=== PATIENT | male | born 2000 | race Caucasian/White ===

== ENCOUNTER 2022-07-30 11:18 | Outpatient (CLI) | payer BC, SELFPAY ==
[2022-07-30 11:31] VITALS: BMI 28.5
[2022-07-30 11:58] LABS: Microscopic, Urine URINE MICROSCOPIC (MICROSCOPIC)
[2022-07-30 11:58] LABS: Coronavirus 19, PCR Not Detected (NotDetected); Influenza A, PCR Not Detected (NotDetected); Influenza B, PCR Not Detected (NotDetected)
[2022-07-30 11:59] LABS: Appearance,Urine CLEAR (Clear); Bilirubin,Urine Negative (Negative); Blood, Urine Negative (Negative); Color,Urine YELLOW (Yellow); Glucose,Urine (UA) Negative (Negative); Ketones,Urine Negative (Negative); Leukocyte Esterase,Urine Negative (Negative); Nitrate,Urine Negative (Negative); PH,Urine 6.5 (5.0-8.5); Protein,Urine Negative (Negative); Specific Gravity, Urine <= 1.005 (1.005-1.030); Urobilinogen,Urine 0.2 EU/dl (0.2)
[2022-07-30 12:00] LABS: Basophils # 0.1 K/mm3 (0-0.2); Basophils % 1.2 % (0.1-2.0); Eosinophils # 0.6 K/mm3 (0.0-0.4); Eosinophils % 8.5 % (0.1-12.0); Hematocrit 45.6 % (42.0-52.0); Hemoglobin 14.6 g/dL (14.1-18.0); Lymphocytes # 1.5 K/mm3 (0.7-4.5); Lymphocytes % 23.9 % (10-50); Mean Corpuscular HGB Conc 32.1 g/dL (31.8-35.4); Mean Corpuscular Hemoglobin 29.5 pg (27.0-31.2); Mean Corpuscular Volume 91.9 fl (80-94); Mean Platelet Volume 8.6 fl (7.4-10.4); Monocytes # 0.6 K/mm3 (0.1-1.0); Monocytes % 9.1 % (1.7-9.3); Neutrophils # 3.7 K/mm3 (1.8-7.8); Neutrophils % 57.3 % (37.0-80.0); Platelet Count 261 K/mm3 (142-424); Red Blood Count 4.96 M/mm3 (4.60-6.20); Red Cell Distribution Width 13.3 % (11.5-17.5); White Blood Count 6.4 K/mm3 (4.8-10.8)
[2022-07-30 12:02] VITALS: BP 134/72; PULSE 84; RESP 18; O2SAT 99
[2022-07-30 12:02] LABS: Chloride 104 mmol/L (98-107); Sodium 141 mmol/L (136-145)
[2022-07-30 12:03] LABS: Potassium 3.5 mmoL/L (3.5-5.1)
[2022-07-30 12:05] LABS: Alanine Aminotransferase 64 U/L (12-78); Albumin Level 4.4 g/dl (3.5-5.0); Albumin/Globulin Ratio 1.7 (1.1-1.8); Alkaline Phosphatase 60 U/L (38-126); Anion Gap 12.5 mEq/L (5-15); Aspartate Amino Transferase 41 U/L (17-59); Bilirubin,Total 0.2 mg/dl (0.2-1.3); Blood Urea Nitrogen 12 mg/dl (9-20); Calcium 9.2 mg/dl (8.4-10.2); Carbon Dioxide 28 mmol/L (22.0-30.0); Creatinine Clearance Estimated 155 mL/min (50-200); Estimated Glomerular Filt Rate 106 ml/min (>60); GFR (African American) 128 ML/MIN (>60); Globulin 2.6 g/dL (1.3-3.2); Glucose 102 mg/dl (74-100)
[2022-07-30 13:05] VITALS: BP 128/76; PULSE 86; RESP 18; O2SAT 100
--- NOTE | 2022-07-30 13:05 | PC.NURSE ---
1305-notified rafat ponce with lab results;she states pt ok to not get other liter of fluid;pt ok to be d/c home
== END 2022-07-30 13:05 | disposition home or self-care (01) ==
LOC: INF 11:23
PROVIDERS: PCP Physician Assistant; Visit Provider Physician Assistant
DX: Z20.822 Contact with and (suspected) exposure to COVID-19 (principal); R19.7 Diarrhea, unspecified; E86.0 Dehydration
CPT/HCPCS: 80053; 81001; 85025; 96360; C9803; U0003; U0005

== ENCOUNTER → 2023-05-18 13:17 | Outpatient (CLI) | payer BC, SELFPAY ==
[2023-05-18 12:49] LABS: Basophils % 0.6 % (0.1-2.0); Eosinophils # 0.3 K/mm3 (0.0-0.4); Eosinophils % 3.4 % (0.1-12.0); Hematocrit 48.4 % (42.0-52.0); Hemoglobin 15.6 g/dL (14.1-18.0); Lymphocytes # 2.1 K/mm3 (0.7-4.5); Lymphocytes % 27.3 % (10-50); Mean Corpuscular HGB Conc 32.2 g/dL (31.8-35.4); Mean Corpuscular Hemoglobin 29.2 pg (27.0-31.2); Mean Corpuscular Volume 90.4 fl (80-94); Mean Platelet Volume 9.4 fl (7.4-10.4); Monocytes # 0.6 K/mm3 (0.1-1.0); Neutrophils # 4.6 K/mm3 (1.8-7.8); Neutrophils % 60.7 % (37.0-80.0); Platelet Count 245 K/mm3 (142-424); Red Blood Count 5.35 M/mm3 (4.60-6.20); Red Cell Distribution Width 12.9 % (11.5-17.5); White Blood Count 7.5 K/mm3 (4.8-10.8)
[2023-05-18 13:07] LABS: Alanine Aminotransferase 35 U/L (12-78); Albumin Level 4.9 g/dl (3.5-5.0); Alkaline Phosphatase 63 U/L (38-126); Anion Gap 17.1 mEq/L (5-15); Aspartate Amino Transferase 30 U/L (17-59); Bilirubin,Total 0.5 mg/dl (0.2-1.3); Blood Urea Nitrogen 18 mg/dl (9-20); Calcium 9.3 mg/dl (8.4-10.2); Carbon Dioxide 25 mmol/L (22.0-30.0); Chloride 103 mmol/L (98-107); Chol/HDL Ratio 4.9 (1-3.5); Cholesterol 220 mg/dl (140-200); Estimated Glomerular Filt Rate 106 ml/min (>60); GFR (African American) 128 ML/MIN (>60); Globulin 2.4 g/dL (1.3-3.2); Glucose 90 mg/dl (74-100); HDL Cholesterol 45 mg/dl (40-60); Potassium 4.1 mmoL/L (3.5-5.1); Sodium 141 mmol/L (136-145); Total Protein,Serum 7.3 g/dl (6.3-8.2); Triglycerides 141 mg/dl (30-150); VLDL Cholesterol 28 mg/dL (0-40)
[2023-05-18 13:18] LABS: Direct LDL Cholesterol 138.07 mg/dL (100-129)
[2023-05-18 13:20] LABS: Free T4 (Free Thyroxine) 0.96 ng/dl (0.78-2.19)
[2023-05-18 13:23] LABS: 25-OH Vitamin D, Total 33.2 ng/mL (30-100)
[2023-05-18 13:37] LABS: Thyroid Stimulating Hormone 2.02 uIU/mL (0.465-4.68)
== END ==
PROVIDERS: PCP Emergency Medicine; Visit Provider Emergency Medicine
DX: R53.83 Other fatigue (principal); E55.9 Vitamin D deficiency, unspecified; N45.1 Epididymitis
CPT/HCPCS: 80053; 80061; 82306; 84439; 84443; 85025

== ENCOUNTER 2025-03-03 04:03 | Emergency (ER) | payer BC, SELFPAY ==
[2025-03-03 04:03] VITALS: BP 154/102; PULSE 101; RESP 16; TEMP 36.6; O2SAT 97; BMI 27.8
--- NOTE | 2025-03-03 04:03 | PC.NURSE ---
C-collar placed at this time.
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
[2025-03-03 04:23] LABS: Basophils # 0.1 K/mm3 (0-0.2); Basophils % 0.5 % (0.1-2.0); Eosinophils # 0.1 K/mm3 (0.0-0.4); Hematocrit 45.3 % (42.0-52.0); Hemoglobin 15.5 g/dL (14.1-18.0); Lymphocytes # 1.9 K/mm3 (0.7-4.5); Lymphocytes % 18.7 % (10-50); Mean Corpuscular HGB Conc 34.2 g/dL (31.8-35.4); Mean Corpuscular Hemoglobin 29.6 pg (27.0-31.2); Mean Corpuscular Volume 86.5 fl (80-94); Monocytes # 0.7 K/mm3 (0.1-1.0); Monocytes % 6.9 % (1.7-9.3); Neutrophils # 7.3 K/mm3 (1.8-7.8); Neutrophils % 72.4 % (37.0-80.0); Nucleated Red Blood Cells # 0 10^3/uL; Nucleated Red Blood Cells % 0 %; Platelet Count 313 K/mm3 (142-424); Red Blood Count 5.24 M/mm3 (4.60-6.20); Red Cell Distribution Width 12.6 % (11.5-17.5); Red Cell Distribution Width-SD 39.4 fL
[2025-03-03 04:25] LABS: Albumin Level 4.8 g/dl (3.5-5.0); Chloride 102 mmol/L (98-107); Sodium 139 mmol/L (136-145)
[2025-03-03 04:26] LABS: Potassium 3.9 mmoL/L (3.5-5.1)
[2025-03-03 04:28] LABS: Alanine Aminotransferase 84 U/L (12-78); Anion Gap 12.9 mEq/L (5-15); Aspartate Amino Transferase 45 U/L (17-59); Blood Urea Nitrogen 16 mg/dl (9-20); Carbon Dioxide 28 mmol/L (22.0-30.0); Creatinine Clearance Estimated 134 mL/min (50-200); Estimated Glomerular Filt Rate 92 ml/min (>60); GFR (African American) 111 ML/MIN (>60)
[2025-03-03 04:29] LABS: Albumin/Globulin Ratio 1.6 (1.1-1.8); Alkaline Phosphatase 74 U/L (38-126); Bilirubin,Total 0.6 mg/dl (0.2-1.3); Calcium 9.7 mg/dl (8.4-10.2); Glucose 106 mg/dl (74-100); Total Protein,Serum 7.8 g/dl (6.3-8.2)
[2025-03-03 04:37] LABS: INR 0.93 (0.9-1.1); Prothrombin Time 10.5 seconds (10.1-12.5)
[2025-03-03] MEDS: IOPAMIDOL-370 (76%);100ML BOTTLE 160 ML IV (04:52)
[2025-03-03] MEDS: SODIUM CHLORIDE 0.9% 10ML SYR (RAD ONLY) 10 ML IV (04:53)
[2025-03-03] MEDS: 0.9 % SODIUM CHLORIDE 50 ML VIAL IV (04:53)
[2025-03-03 05:33] VITALS: BP 136/88; PULSE 78; RESP 16; TEMP 36.7; O2SAT 98
== END 2025-03-03 05:38 | disposition home or self-care (01) ==
PROVIDERS: Emergency Provider Emergency Medicine
DX: R07.89 Other chest pain (principal); M25.512 Pain in left shoulder; V49.40XA Driver injured in collision with unspecified motor vehicles in traffic accident, initial encounter
CPT/HCPCS: 70450; 70496; 70498; 71275; 72125; 72128; 72131; 73030; 74174; 80053; 85025; 85610; 99285; 99291; Q9967

== ENCOUNTER 2025-09-21 08:57 | Outpatient (CLI) | payer BC, SELFPAY ==
[2025-09-26 02:53] LABS: Mycoplasma genitalium, NAA Negative (Negative); Neisseria gonorrhoeae, NAA Negative (Negative)
== END 2025-09-21 23:59 | disposition home or self-care (01) ==
LOC: LAB.DROPOF 09-25 08:58
PROVIDERS: Visit Provider Student in an Organized Health Care Education/Training Program
DX: N39.0 Urinary tract infection, site not specified (principal); Z11.3 Encounter for screening for infections with a predominantly sexual mode of transmission
CPT/HCPCS: 87086; 87088; 87186; 87491; 87563; 87591; 87661